=== PATIENT | female | born 1990 | race Caucasian/White ===

== ENCOUNTER 2016-04-07 19:38 | Emergency (ER) | payer OTHER ==
[~2016-04-07] VITALS: Ht 162.6 cm; Wt 57.2 kg
[2016-04-07 19:49] VITALS: Ht 162.6 cm; Wt 57.2 kg
[2016-04-07] MEDS ORDERED: IBUPROFEN 600 MG TAB PO ONE (21:30)
--- NOTE | 2016-04-07 22:00 | RADRPT ---
PROCEDURE: US Pelvis. CLINICAL INDICATION: Pelvic pain TECHNIQUE: Multiple sonographic images of the pelvis were obtained utilizing a transabdominal tech nique. The images were reviewed on a PACS workstation. COMPARISON: None available FINDINGS: Uterus: Normal in size, contour and echogenicity with no evidence for myometrial masses. Size is est imated at 10 x 6.6 x 4.9 cm. Cervix: No abnormalities of significance are seen. Endometrium: Normal in thickness; 8 mm. Right ovary / adnexa: Normal in size estimated at 4.9 x 4.5 x 4.3 cm. No evidence for masses, norm al blood flow on Doppler interrogation. Simple appearing cyst measures 2.8 x 2.4 x 2.2 cm. Left ovary/adnexa: Normal in size estimated at 3.4 x 3 x 2.5 cm. No evidence for solid masses, norm al blood flow on Doppler interrogation. Cul-de-sac: No evidence of free fluid. RPTAT:HJJR IMPRESSION: 1. Simple appearing right ovarian cyst measuring 2.8 x 2.4 x 2.2 cm. 2. Otherwise unremarkable transabdominal pelvic ultrasound. Physician Gildardo Date Time Electronically viewed and signed by Physician Gildardo on 04/07/2016 22:00 /
--- NOTE | 2016-04-07 22:24 | ERD ---
ER Documentation Chief Complaint Date/Time DATE: 04/07/16 TIME: 22:12 Chief Complaint lower abd pain x 2 years hx-right ovarian cyst HPI Pleasant 25-year-old female coming in today with left-sided abdominal pain, pain is constant waxing and waning between 57/10 on pain scale. Pain is described as a dull to sharp pressure. She reports history of right ovarian cyst, her last evaluation was 2013. Patient states that she has tried oral contraceptive pills to control symptoms and unable to tolerate. Patient currently is not on any treatment for her ovarian cysts, reports mild nausea, denies dysuria, denies vomiting, vaginal discharge, or hematuria. Patient denies back pain. Last menstrual period completed on March 30, 2016. ROS All systems reviewed and are negative except as per history of present illness. Medications Home Meds Active Scripts Ibuprofen* (Motrin*) 600 Mg Tab, 600 MG PO Q6, #30 TAB Prov:GERSON FRASER 04/07/16 Allergies Allergies: Coded Allergies: No Known Allergy (Unverified , 04/07/16) PMhx/Soc History of Surgery: No Anesthesia Reaction: No Hx Neurological Disorder: No Hx Respiratory Disorders: Yes (BRONCHITIS) Hx Cardiac Disorders: No Hx Psychiatric Problems: No Hx Miscellaneous Medical Probl: Yes (L OVARIAN CYSTS SINCE 2013) Hx Alcohol Use: No Hx Substance Use: Yes (MARIJUANA SOMETIMES FOR PAIN) Hx Tobacco Use: Yes (HOOKAH) Smoking Status: Current some day smoker Physical Exam Vitals Vital Signs Date Time Temp Pulse Resp B/P Pulse Ox O2 Delivery O2 Flow Rate FiO2 04/07/16 22:38 98.2 71 18 115/60 99 Room Air 04/07/16 19:49 97.3 76 20 111/78 99 Vital stable, nursing notes reviewed Physical Exam Const: No acute distress Head: Atraumatic Eyes: ENT: Neck: Resp: Clear to auscultation bilaterally Cardio: Regular rate and rhythm, no murmurs Abd: Abdomen symmetrical, soft, lower quadrant tender to palpation, psoas sign negative. No CVA tenderness. Skin: Back: No midline or flank tenderness Ext: Neur: Awake and alert Psych: Normal Mood and Affect Results 24 hrs Current Medications Medications (Trade) Dose Ordered Sig/Glenda Route PRN Reason Start Time Stop Time Status Last Admin Dose Admin Ibuprofen (Motrin) 600 mg ONCE ONCE PO 04/07/16 21:30 04/07/16 21:31 DC 04/07/16 21:39 Procedures/MDM Pelvic ultrasound (copied from radiology report) Findings: Uterus normal size and contour Cervix no abnormality Right ovarian/adnexa normal size evidence of masses, normal blood flow on Doppler. Simple appearing cyst measuring 2.8 x 2.4 x 2.2 cm Left ovary/adnexa normal size estimating 3.4 x 3 x 2.5 cm no evidence for solid masses cul-de-sac no evidence of free fluid Impression 1. Simple appearing right ovarian cyst measuring 2.82.4 x 2.2 cm 2. Otherwise unremarkable transabdominal pelvic ultrasound. I feel the patient is stable for discharge at this time. Ruptured ovarian cysts , or ovarian torsion ruled out on ultrasound. Patient instructed to follow-up with procurement services manager. I have discussed results, examination findings, the treatment plan with the patient and family present prior to discharge. Indications for emergent reevaluation, side effects of medication were also discussed. All questions were answered. Patient verbalizes understanding and agrees with plan of care. GERSON FRASER Apr 07, 2016 22:22
[2016-04-07] MEDS ORDERED: IBUP-1542 PO (22:25)
[2016-04-07 22:38] VITALS: BP 115/60; PULSE 71; RESP 18; TEMP 98.2
== END 2016-04-07 22:39 | disposition home or self-care (01) ==
LOC: FTE 19:38
DX: N83.201 Unspecified ovarian cyst, right side (principal); F17.210 Nicotine dependence, cigarettes, uncomplicated
CPT/HCPCS: 76856; Z7502; Z7610